=== PATIENT | male | born 1945 | race American Indian/Alaskan Native ===

== ENCOUNTER 2020-12-03 16:22 | Inpatient (IN) | payer MEDICARE ==
--- NOTE | 2020-12-03 16:52 | Emergency Department Report ---
HPI - General Time Seen by Provider: 12/03/20 16:40 - HPI HPI: This is a 75-year-old -Greenlandic male who presents to the emergency department, sent in by Dr. Enrique of [facility], for evaluation of bradycardia. The patient has a past medical history of Parkinson's disease, HIV, hypertension, hyperlipidemia, and is dealing with some urological issues. The patient previously had a suprapubic catheter placed but that was consistently getting clogged. He then had a Carr catheter placed. The patient is supposed to have surgery on December 14 to remove an obstructing stone and have a new suprapubic catheter placed. He follows with urology of [facility] in [place] and previously was seeing Dr. Saleem. The patient lives at [facility] and Dr. Vincent Ren had noticed the patient was having bradycardia. He was then sent to [facility] cardiology for evaluation of this bradycardia and he had his first appointment today. The patient presents w ith an office note showing that the patient had a heart rate of 49 and had an EKG that showed some type of AV block and that the patient will be sent to the emergency department for further evaluation. The patient is nonverbal at baseline. The patient is nonambulatory at the daughter, who is bedside, says he has multiple pressure ulcers. ED Review of Systems ROS: Stated complaint: LOW HEART RATE Other details as noted in HPI Comment: Unobtainable due to pts medical conditions Physical Exam - Physical Exam Physical Exam: GENERAL: Patient appears chronically ill and debilitated. Thin and frail appearance. HENT: Normocephalic. Atraumatic. Patient has moist mucous membranes. EYES: Extraocular motions are intact. NECK: Supple. Trachea is midline. CHEST/LUNGS: Clear to auscultation. There is no respiratory distress noted. HEART/CARDIOVASCULAR: Regular. There is no tachycardia. There is no murmur. ABDOMEN: Abdomen is soft, nontender. Patient has normal bowel sounds. SKIN: Skin is warm and dry. NEURO: The patient is awake but confused. Follows some commands. MUSCULOSKELETAL: Patient has contracted bilateral upper and lower extremities. ED Medical Decision Making - Lab Data Result diagrams: 12/03/20 16:53 12/03/20 16:53 Lab Results 12/03/20 12/03/20 12/03/20 Range/Units 16:53 16:53 16:53 WBC 6.1 (4.5-11.0) K/mm3 RBC 3.43 L (3.65-5.03) M/mm3 Hgb 11.3 L (11.8-15.2) gm/dl Hct 34.7 L (35.5-45.6) % MCV 101 H (84-94) fl MCH 33 H (28-32) pg MCHC 32 (32-34) % RDW 14.3 (13.2-15.2) % Plt Count 333 (140-440) K/mm3 Lymph % (Auto) 29.1 (13.4-35.0) % [place] % (Auto) 8.1 H (0.0-7.3) % Eos % (Auto) 3.9 (0.0-4.3) % Baso % (Auto) 0.7 (0.0-1.8) % Lymph # (Auto) 1.8 (1.2-5.4) K/mm3 [place] # (Auto) 0.5 (0.0-0.8) K/mm3 Eos # (Auto) 0.2 (0.0-0.4) K/mm3 Baso # (Auto) 0.0 (0.0-0.1) K/mm3 Seg Neutrophils % 58.2 (40.0-70.0) % Seg Neutrophils # 3.5 (1.8-7.7) K/mm3 Sodium 138 (137-145) mmol/L Potassium 3.8 (3.6-5.0) mmol/L Chloride 102.3 (98-107) mmol/L Carbon Dioxide 25 (22-30) mmol/L Anion Gap 15 mmol/L BUN 13 (9-20) mg/dL Creatinine 0.9 (0.8-1.3) mg/dL Estimated GFR > 60 ml/min BUN/Creatinine Ratio 14 % Glucose 122 H (75-100) mg/dL Calcium 8.7 (8.4-10.2) mg/dL Total Bilirubin 0.30 (0.1-1.2) mg/dL AST 15 (5-40) units/L ALT 16 (7-56) units/L Alkaline Phosphatase 65 (35-129) units/L Troponin T 0.017 (0.00-0.029) ng/mL Total Protein 6.6 (6.3-8.2) g/dL Albumin 3.2 L (3.9-5) g/dL Albumin/Globulin Ratio 0.9 % TSH 1.510 (0.270-4.200) mlU/mL - EKG Data -: EKG Interpreted by Me EKG shows normal: sinus rhythm, axis, intervals (Prolonged WV and QT intervals.), QRS complexes, ST-T waves Rate: bradycardia (45 bpm) - EKG Data When compared to previous EKG there are: previous EKG unavailable Interpretation: other (Sinus bradycardia at 45 bpm, prolonged WV and QT intervals. No ST elevation SD.) - Radiology Data Radiology results: image reviewed interpreted by me: Chest x-ray does not show any acute process. There are no pleural effusions, obvious pneumonia and there is no pneumothorax. No significant cardiomegaly. - Medical Decision Making This patient was sent in by [facility] secondary to bradycardia for which they were unable to provide a cardiac clearance for upcoming urology surgery. His EKG shows a marked first-degree heart block with a WV interval of about 300. No morphology consistent with ST elevation myocardial infarction. Chest x-ray does not show any pneumonia, pleural effusions, pneumothorax, or any other acute process. The patient's labs have been mostly unremarkable including CBC, metabolic panel and thyroid function. The patient's vital signs have been reassuring except for the bradycardia that has gone as low as 46 bpm. Patient will be admitted to the hospital for further evaluation and treatment and was accepted for admission by the hospitalist, Dr. Miller. Critical Care Time: No Critical care attestation.: If time is entered above; I have spent that time in minutes in the direct care of this critically ill patient, excluding procedure time. ED Disposition Clinical Impression: Bradycardia, Parkinson's disease, First degree atrioventricular block Disposition: OP ADMIT IP TO THIS HOSP Is pt being admited?: Yes Condition: Fair Time of Disposition: 18:12
[2020-12-03 17:16] LABS: Basophils % (Auto) 0.7 % (0.0-1.8); Eosinophils # (Auto) 0.2 K/mm3 (0.0-0.4); Eosinophils % (Auto) 3.9 % (0.0-4.3); Hematocrit 34.7 % (35.5-45.6); Hemoglobin 11.3 gm/dl (11.8-15.2); Lymphocytes # (Auto) 1.8 K/mm3 (1.2-5.4); Lymphocytes % (Auto) 29.1 % (13.4-35.0); Mean Corpuscular HGB Conc 32 % (32-34); Mean Corpuscular Volume 101 fl (84-94); Monocytes # (Auto) 0.5 K/mm3 (0.0-0.8); Monocytes % (Auto) 8.1 % (0.0-7.3); Platelet Count 333 K/mm3 (140-440); Red Blood Count 3.43 M/mm3 (3.65-5.03); Red Cell Distribution Width 14.3 % (13.2-15.2)
[2020-12-03 17:37] LABS: Alanine Aminotransferase 16 units/L (7-56); Albumin 3.2 g/dL (3.9-5); BUN/Creatinine Ratio 14; Blood Urea Nitrogen 13 mg/dL (9-20); Calcium 8.7 mg/dL (8.4-10.2); Hemolysis Index 0
--- NOTE | 2020-12-03 17:56 | XRay Report ---
XR chest 1V ap INDICATION / CLINICAL INFORMATION: bradycardia. COMPARISON: None available. FINDINGS: Patient is rotated to the right. SUPPORT DEVICES: None. HEART /PULMONARY VASCULATURE: No significant abnormality. LUNGS / PLEURA: There are low lung volumes. No significant pulmonary or pleural abnormality is identi fied. No pneumothorax. ADDITIONAL FINDINGS: None IMPRESSION: No acute chest process. Signer Name: Stewart Logan MD Signed: 12/03/2020 5:51 PM Workstation Name: [employer]
--- NOTE | 2020-12-03 23:17 | History and Physical Report ---
History of Present Illness Date of examination: 12/03/20 Date of admission: 12/03/20 18:12 Chief complaint: Seen by fur grader for bradycardia History of present illness: This is a 75-year-old -Thai male with severe parkinsonism and multiple contractures curled up in the bed who presents to the emergency department, sent in by Dr. Enrique of [facility], for evaluation of bradycardia. The patient has a past medical history of Parkinson's disease, H IV, hypertension, hyperlipidemia, and is dealing with some urological issues. The patient previously had a suprapubic catheter placed but that was consistently getting clogged. He then had a Carr catheter placed. The patient is supposed to have surgery on December 14 to remove an obstructing stone and have a new suprapubic catheter placed. He follows with urology of [facility] in [place] and previously was seeing Dr. Saleem. The patient lives at [facility] and Dr. Vincent Ren had noticed the patient was having bradycardia. He was then sent to [facility] cardiology for evaluation of this bradycardia and he had his first appointment today. The patient presents with an office note showing that the patient had a heart rate of 49 and had an EKG that showed AV block and that the patient will be sent to the emergency department for further evaluation. The patient is nonverbal at baseline. The patient is nonambulatory at the daughter, who is bedside, says he has multiple pressure ulcers. Patient can be fed and has no PEG tube Past History Past Medical History: HIV/AIDS, hypertension, hyperlipidemia, other (Parkinsonism) Past Surgical History: No surgical history Social history: full code, other (Lives in a residential) Family history: hypertension Medications and Allergies Allergies Allergy/AdvReac Type Severity Reaction Status Date / Time Sulfa (Sulfonamide Allergy Unknown Verified 12/03/20 17:02 Antibiotics) Home Medications Medication Instructions Recorded Confirmed Last Taken Type Acetaminophen [Acetaminophen ER] 650 mg PO Q6H PRN 12/03/20 12/04/20 Unknown History Alendronate Sodium 70 mg PO QWEEK 12/03/20 12/04/20 Unknown History Baclofen [Lioresal] 10 mg PO BID 12/03/20 12/04/20 Unknown History Bictegrav/Emtricit/Tenofov Ala 1 tab PO DAILY 12/03/20 12/04/20 Unknown History [Biktarvy 50-200-25 mg (Nf)] Hyoscyamine Subl [Levsin Sl] 0.125 mg SL Q4H PRN 12/03/20 12/04/20 Unknown History Melatonin [Melatonin 5MG CAP] 5 mg PO QHS 12/03/20 12/04/20 Unknown History Rosuvastatin Calcium 10 mg PO QHS 12/03/20 12/04/20 Unknown History bisacodyL [Dulcolax suppos] 10 mg VA DAILY PRN 12/03/20 12/04/20 Unknown History haloperidoL [Haldol] 1 mg PO Q4H PRN 12/03/20 12/04/20 Unknown History Review of Systems All systems: negative Constitutional: no weight loss, no weight gain, no fever, no chills, no sweats, no night sweats Ears, nose, mouth and throat: no ear pain, no ear discharge, no tinnitis, no decreased hearing Cardiovascular: no chest pain, no orthopnea, no palpitations, no rapid/irregular heart beat, no edema, no syncope, no lightheadedness, no shortness of breath Respiratory: no cough, no cough with sputum, no excessive sputum, no hemoptysis, no shortness of breath, no dyspnea on exertion Gastrointestinal: no abdominal pain, no nausea, no vomiting, no diarrhea Genitourinary Male: no urinary frequency, no urinary hesitancy Musculoskeletal: muscle weakness, limitation of motion, gait dysfunction, other (Contractures in all four extremities), no neck stiffness, no neck pain Exam - Constitutional Vitals: Temp Pulse Resp BP Pulse Ox 98.8 F 48 L 17 136/52 97 12/03/20 21:27 12/03/20 21:41 12/03/20 21:27 12/03/20 21:27 12/03/20 21:27 General appearance: Present: no acute distress, well-nourished - EENT Eyes: Present: PERRL ENT: hearing intact, clear oral mucosa - Neck Neck: Present: supple, normal ROM - Respiratory Respiratory effort: normal Respiratory: bilateral: CTA - Cardiovascular Heart rate: 48 Rhythm: regular Heart Sounds: Present: S1 & S2. Absent: rub, click - Extremities Extremities: no ischemia, pulses intact, pulses symmetrical, No edema Peripheral Pulses: within normal limits - Abdominal General gastrointestinal: Present: soft, non-tender, non-distended, normal bowel sounds Male genitourinary: Present: normal - Rectal Rectal Exam: deferred - Integumentary Integumentary: Present: clear, warm, dry - Musculoskeletal Musculoskeletal: generalized weakness, other (Multiple contractures) - Psychiatric Psychiatric: intact judgment & insight, cooperative, other (Severe rigidity on all four extremities secondary to parkinsonism) - Neurologic Neurologic: CNII-XII intact, moves all extremities - Allied Health Allied health notes reviewed: nursing, case management HEART Score - HEART Score History: Slightly suspicious Age: > 65 Risk factors: > 3 risk factors or hx of atherosclerotic disease Troponin: Troponin T 0.017 ng/mL (0.00-0.029) 12/03/20 16:53 Troponin: < normal limit - Critical Actions Critical Actions: 0-3 pts:0.9-1.7%risk of adverse cardiac event.Candidate for discharge Results - Labs CBC & Chem 7: 12/04/20 05:14 12/04/20 05:14 Labs: Laboratory Last Values WBC 6.1 K/mm3 (4.5-11.0) 12/03/20 16:53 RBC 3.43 M/mm3 (3.65-5.03) L 12/03/20 16:53 Hgb 11.3 gm/dl (11.8-15.2) L 12/03/20 16:53 Hct 34.7 % (35.5-45.6) L 12/03/20 16:53 MCV 101 fl (84-94) H 12/03/20 16:53 MCH 33 pg (28-32) H 12/03/20 16:53 MCHC 32 % (32-34) 12/03/20 16:53 RDW 14.3 % (13.2-15.2) 12/03/20 16:53 Plt Count 333 K/mm3 (140-440) 12/03/20 16:53 Lymph % (Auto) 29.1 % (13.4-35.0) 12/03/20 16:53 [place] % (Auto) 8.1 % (0.0-7.3) H 12/03/20 16:53 Eos % (Auto) 3.9 % (0.0-4.3) 12/03/20 16:53 Baso % (Auto) 0.7 % (0.0-1.8) 12/03/20 16:53 Lymph # (Auto) 1.8 K/mm3 (1.2-5.4) 12/03/20 16:53 [place] # (Auto) 0.5 K/mm3 (0.0-0.8) 12/03/20 16:53 Eos # (Auto) 0.2 K/mm3 (0.0-0.4) 12/03/20 16:53 Baso # (Auto) 0.0 K/mm3 (0.0-0.1) 12/03/20 16:53 Seg Neutrophils % 58.2 % (40.0-70.0) 12/03/20 16:53 Seg Neutrophils # 3.5 K/mm3 (1.8-7.7) 12/03/20 16:53 Sodium 138 mmol/L (137-145) 12/03/20 16:53 Potassium 3.8 mmol/L (3.6-5.0) 12/03/20 16:53 Chloride 102.3 mmol/L (98-107) 12/03/20 16:53 Carbon Dioxide 25 mmol/L (22-30) 12/03/20 16:53 Anion Gap 15 mmol/L 12/03/20 16:53 BUN 13 mg/dL (9-20) 12/03/20 16:53 Creatinine 0.9 mg/dL (0.8-1.3) 12/03/20 16:53 Estimated GFR > 60 ml/min 12/03/20 16:53 BUN/Creatinine Ratio 14 % 12/03/20 16:53 Glucose 122 mg/dL (75-100) H 12/03/20 16:53 Calcium 8.7 mg/dL (8.4-10.2) 12/03/20 16:53 Total Bilirubin 0.30 mg/dL (0.1-1.2) 12/03/20 16:53 AST 15 units/L (5-40) 12/03/20 16:53 ALT 16 units/L (7-56) 12/03/20 16:53 Alkaline Phosphatase 65 units/L (35-129) 12/03/20 16:53 Troponin T 0.017 ng/mL (0.00-0.029) 12/03/20 16:53 Total Protein 6.6 g/dL (6.3-8.2) 12/03/20 16:53 Albumin 3.2 g/dL (3.9-5) L 12/03/20 16:53 Albumin/Globulin Ratio 0.9 % 12/03/20 16:53 TSH 1.510 mlU/mL (0.270-4.200) 12/03/20 16:53 Short CBC 12/03/20 12/04/20 Range/Units 16:53 05:14 WBC 6.1 12.8 H (4.5-11.0) K/mm3 Hgb 11.3 L 10.9 L (11.8-15.2) gm/dl Hct 34.7 L 33.6 L (35.5-45.6) % Plt Count 333 295 (140-440) K/mm3 BMP 12/03/20 12/04/20 16:53 05:14 Sodium 138 139 Potassium 3.8 3.5 L Chloride 102.3 107.0 Carbon Dioxide 25 23 BUN 13 12 Creatinine 0.9 0.9 Glucose 122 H 109 H Calcium 8.7 8.7 Cardiac Enzymes 12/03/20 12/04/20 12/04/20 Range/Units 16:53 00:36 05:14 Troponin T 0.017 < 0.010 0.017 (0.00-0.029) ng/mL Liver Function 12/03/20 12/04/20 Range/Units 16:53 05:14 Total Bilirubin 0.30 0.40 (0.1-1.2) mg/dL AST 15 16 (5-40) units/L ALT 16 16 (7-56) units/L Alkaline Phosphatase 65 65 (35-129) units/L Albumin 3.2 L 3.0 L (3.9-5) g/dL - Imaging and Cardiology EKG: report reviewed (Sinus bradycardia first-degree AV block heart rate of 48/min) Chest x-ray: report reviewed Imaging and Cardiology: No acute findings Carr/IV: Voiding Method Indwelling Catheter Assessment and Plan Advance Directives: Yes (Full code) VTE prophylaxis?: Chemical Plan of care discussed with patient/family: Yes - Patient Problems (1) Bradycardia Current Visit: Yes Status: Acute Plan to address problem: Stable Cardiology Dr. Enrique consulted (2) First degree atrioventricular block Current Visit: Yes Status: Chronic Plan to address problem: Will defer to cardiology (3) Parkinson's disease Current Visit: Yes Status: Chronic Plan to address problem: Continue antiparkinsonian drugs (4) Anemia Current Visit: Yes Status: Chronic Qualifiers: Anemia type: unspecified type Qualified Code(s): D64.9 - Anemia, unspecified Plan to address problem: Check iron levels, probably nutritional (5) Hypokalemia Current Visit: Yes Status: Acute Plan to address problem: Supplemented (6) HIV (human immunodeficiency virus infection) Current Visit: Yes Status: Chronic Qualifiers: HIV symptom status: unspecified Qualified Code(s): B20 - Human immunodeficiency virus [HIV] disease Plan to address problem: Continue antiretrovirals (7) Decubitus ulcers Current Visit: Yes Status: Chronic Qualifiers: Pressure injury stage: stage 2 Plan to address problem: Wound care nurse consult (8) Malnutrition Current Visit: Yes Status: Chronic Qualifiers: Protein-calorie malnutrition severity: moderate Plan to address problem: Dietary supplements initiated (9) DVT prophylaxis Current Visit: Yes Status: Acute Plan to address problem: On heparin and GI prophylaxis
[2020-12-03] MEDS ORDERED: ONDANSETRON 4 MG/2 ML INJ IV PRN (23:23)
[2020-12-03] MEDS ORDERED: ACETAMINOPHEN 325 MG TAB PO PRN (23:23)
[2020-12-03] MEDS ORDERED: METOCLOPRAMIDE 10 MG/2 ML INJ IV PRN (23:23)
[2020-12-03] MEDS ORDERED: MORPHINE 2 MG/1 ML INJ IV PRN (23:23)
[2020-12-04] MEDS: D5W/0.9% NACL 1,000 ML IV SCH (00:59)
[2020-12-04 06:04] LABS: Basophils % (Auto) 0.3 % (0.0-1.8); Eosinophils # (Auto) 0.1 K/mm3 (0.0-0.4); Eosinophils % (Auto) 0.8 % (0.0-4.3); Hematocrit 33.6 % (35.5-45.6); Hemoglobin 10.9 gm/dl (11.8-15.2); Lymphocytes # (Auto) 1.6 K/mm3 (1.2-5.4); Lymphocytes % (Auto) 12.8 % (13.4-35.0); Mean Corpuscular HGB Conc 33 % (32-34); Mean Corpuscular Volume 101 fl (84-94); Monocytes # (Auto) 0.7 K/mm3 (0.0-0.8); Monocytes % (Auto) 5.2 % (0.0-7.3); Platelet Count 295 K/mm3 (140-440); Red Blood Count 3.32 M/mm3 (3.65-5.03); Red Cell Distribution Width 14.1 % (13.2-15.2)
[2020-12-04 06:49] LABS: Alanine Aminotransferase 16 units/L (7-56); BUN/Creatinine Ratio 13; Blood Urea Nitrogen 12 mg/dL (9-20); Calcium 8.7 mg/dL (8.4-10.2); Hemolysis Index 2
[2020-12-04] MEDS ORDERED: NON-FORMULARY EACH (Acetaminophen [Acetaminophen Er] 650 MG Tablet.Er) PO PRN (07:20)
[2020-12-04] MEDS ORDERED: HYOSCYAMINE SUBL 0.125 MG TAB SL PRN (07:20)
[2020-12-04] MEDS ORDERED: HALOPERIDOL 1 MG TAB PO PRN (07:20)
[2020-12-04] MEDS ORDERED: NON-FORMULARY EACH (Bictegrav/Emtricit/Tenofov Ala 1 EACH Tablet) PO SCH (10:00)
--- NOTE | 2020-12-04 10:36 | Progress Note ---
Assessment and Plan Assessment and plan: First-degree AV block/bradycardia Parkinson's disease Anemia Hypokalemia HIV Decubitus ulcers Protein calorie malnutrition 12/04/2020. Await cardiology consultation. Continue telemetry monitoring. History Interval history: No new issues overnight. Hospitalist Physical - Constitutional Vitals: Temp Pulse Resp BP Pulse Ox 98.4 F 48 L 16 128/50 68 L 12/04/20 07:20 12/04/20 07:20 12/04/20 07:20 12/04/20 07:20 12/04/20 07:20 General appearance: Present: no acute distress, well-nourished - EENT Eyes: Present: PERRL, EOM intact ENT: hearing intact, clear oral mucosa, dentition normal - Neck Neck: Present: supple, normal ROM - Respiratory Respiratory effort: normal Respiratory: bilateral: CTA - Cardiovascular Rhythm: regular Heart Sounds: Present: S1 & S2. Absent: gallop, rub - Extremities Extremities: no ischemia, No edema, Full ROM - Abdominal General gastrointestinal: soft, non-tender, non-distended, normal bowel sounds - Integumentary Integumentary: Present: clear, warm, dry - Neurologic Neurologic: CNII-XII intact, moves all extremities HEART Score - HEART Score Age: > 65 Risk factors: > 3 risk factors or hx of atherosclerotic disease Troponin: Troponin T 0.017 ng/mL (0.00-0.029) 12/04/20 05:14 Troponin: < normal limit - Critical Actions Critical Actions: 0-3 pts:0.9-1.7%risk of adverse cardiac event.Candidate for discharge Results - Labs CBC & Chem 7: 12/04/20 05:14 12/04/20 05:14 Labs: Laboratory Last Values WBC 12.8 K/mm3 (4.5-11.0) H 12/04/20 05:14 RBC 3.32 M/mm3 (3.65-5.03) L 12/04/20 05:14 Hgb 10.9 gm/dl (11.8-15.2) L 12/04/20 05:14 Hct 33.6 % (35.5-45.6) L 12/04/20 05:14 MCV 101 fl (84-94) H 12/04/20 05:14 MCH 33 pg (28-32) H 12/04/20 05:14 MCHC 33 % (32-34) 12/04/20 05:14 RDW 14.1 % (13.2-15.2) 12/04/20 05:14 Plt Count 295 K/mm3 (140-440) 12/04/20 05:14 Lymph % (Auto) 12.8 % (13.4-35.0) L 12/04/20 05:14 [place] % (Auto) 5.2 % (0.0-7.3) 12/04/20 05:14 Eos % (Auto) 0.8 % (0.0-4.3) 12/04/20 05:14 Baso % (Auto) 0.3 % (0.0-1.8) 12/04/20 05:14 Lymph # (Auto) 1.6 K/mm3 (1.2-5.4) 12/04/20 05:14 [place] # (Auto) 0.7 K/mm3 (0.0-0.8) 12/04/20 05:14 Eos # (Auto) 0.1 K/mm3 (0.0-0.4) 12/04/20 05:14 Baso # (Auto) 0.0 K/mm3 (0.0-0.1) 12/04/20 05:14 Seg Neutrophils % 80.9 % (40.0-70.0) H 12/04/20 05:14 Seg Neutrophils # 10.3 K/mm3 (1.8-7.7) H 12/04/20 05:14 Sodium 139 mmol/L (137-145) 12/04/20 05:14 Potassium 3.5 mmol/L (3.6-5.0) L 12/04/20 05:14 Chloride 107.0 mmol/L (98-107) 12/04/20 05:14 Carbon Dioxide 23 mmol/L (22-30) 12/04/20 05:14 Anion Gap 13 mmol/L 12/04/20 05:14 BUN 12 mg/dL (9-20) 12/04/20 05:14 Creatinine 0.9 mg/dL (0.8-1.3) 12/04/20 05:14 Estimated GFR > 60 ml/min 12/04/20 05:14 BUN/Creatinine Ratio 13 % 12/04/20 05:14 Glucose 109 mg/dL (75-100) H 12/04/20 05:14 Hemoglobin A1c 5.1 % (4-6) 12/04/20 05:14 Calcium 8.7 mg/dL (8.4-10.2) 12/04/20 05:14 Total Bilirubin 0.40 mg/dL (0.1-1.2) 12/04/20 05:14 AST 16 units/L (5-40) 12/04/20 05:14 ALT 16 units/L (7-56) 12/04/20 05:14 Alkaline Phosphatase 65 units/L (35-129) 12/04/20 05:14 Troponin T 0.017 ng/mL (0.00-0.029) 12/04/20 05:14 Total Protein 7.0 g/dL (6.3-8.2) 12/04/20 05:14 Albumin 3.0 g/dL (3.9-5) L 12/04/20 05:14 Albumin/Globulin Ratio 0.8 % 12/04/20 05:14 TSH 1.510 mlU/mL (0.270-4.200) 12/03/20 16:53 Carr/IV: Voiding Method Indwelling Catheter Active Medications - Current Medications Current Medications: Generic Name Dose Route Start Last Admin Trade Name Freq PRN Reason Stop Dose Admin Acetaminophen 650 mg 12/03/20 23:23 Acetaminophen 325 Mg Tab PO Q4H PRN Pain MILD(1-3)/Fever >100.5/BAILEY Baclofen 10 mg 12/04/20 10:00 Baclofen 10 Mg Tab PO BID SAFIA Bisacodyl 10 mg 12/04/20 10:00 Bisacodyl 10 Mg Rect Supp MD DAILY PRN Constipation Famotidine 20 mg 12/04/20 10:00 Famotidine 20 Mg/2 Ml Inj IV BID SAFIA Haloperidol 1 mg 12/04/20 07:20 Haloperidol 1 Mg Tab PO Q4H PRN Anxiety Heparin Sodium (Porcine) 5,000 unit 12/04/20 10:00 Heparin 5,000 Unit/1 Ml Vial SUB-Q Q12HR SAFIA Hyoscyamine 0.125 mg 12/04/20 07:20 Hyoscyamine Subl 0.125 Mg Tab SL Q4H PRN excessive secretions Dextrose/Sodium Chloride 1,000 mls @ 100 mls/hr 12/03/20 23:45 12/04/20 00:59 D5ns IV 100 mls/hr DIRECT SAFIA Administration Metoclopramide HCl 10 mg 12/03/20 23:23 Metoclopramide 10 Mg/2 Ml Inj IV Q6H PRN Nausea And Vomiting Miscellaneous Medication 1 tab 12/04/20 10:00 Bictegrav/Emtricit/Tenofov Ala PO DAILY SAFIA Morphine Sulfate 2 mg 12/03/20 23:23 Morphine 2 Mg/1 Ml Inj IV Q4H PRN Pain, Moderate (4-6) Ondansetron HCl 4 mg 12/03/20 23:23 Ondansetron 4 Mg/2 Ml Inj IV Q3H PRN Nausea And Vomiting Sodium Chloride 10 ml 12/03/20 23:45 12/04/20 00:59 Sodium Chloride 0.9% 10 Ml Flush Syringe IV 10 ml BID SAFIA Administration Sodium Chloride 10 ml 12/03/20 23:23 Sodium Chloride 0.9% 10 Ml Flush Syringe IV PRN PRN LINE FLUSH Nutrition/Malnutrition Assess - Dietary Evaluation Nutrition/Malnutrition Findings: Nutrition Notes Start: 12/04/20 09:32 Freq: Status: Active Protocol: Document 12/04/20 09:32 CW (Rec: 12/04/20 09:44 CW [id number]) Nutrition Notes Need for Assessment generated from: educational aide,MST Initial or Follow up Assessment Current Diagnosis Decubitus(Pressure Ulcer), Hypertension,Hyperlipidemia Other Pertinent Diagnosis Parkinson's,anemia, HIV, Malnutrition, contractures Current Diet Cardiac Labs/Tests K 3.5 Pertinent Medications D5NS at 100 ml/hr Height 5 ft 7 in Weight 55.6 kg Sims Body Weight (kg) 67.27 BMI 19.2 Weight Status Underweight Subjective/Other Information RN screen for MST for unsure of weight loss and skin risk. Roque score of 12. Pt recieves [id number] assistance d /t contractures. Burn Absent Trauma Absent GI Symptoms None Skin Integrity/Comment Pressure ulcers Minimum of two criteria No Reduced Reproduction Production Manager Strength Measurably Reduced (severe) #1 Nutrition Diagnosis Increased nutrient needs ( specify in comment below) Comments: protein Etiology wound healing As Evidenced by Signs and Symptoms multiple pressure ulcers present Is patient on ventilator? No Is Patient Ambulatory and/or Out of Bed No REE-([facility]-confined to bed) 1506.084 Kcal/Kg value to use for calculation 33 Approximate Energy Requirements Using 1835 kcal/Kg Calculation Used for Recommendations Kcal/kg Additional Notes protein needs:70-83 g (1.25 - 1.5 g/kgBW) fluid needs: 1 ml/kcal Nutrition Intervention Change Diet Order: Continue Cardiac Diet Add Supplement/Snack (indicate name/kcal Ensure Enlive BID /protein ) Provides kCal: 700 Provides Protein (gm) 40 Goal #1 Meet at [facility] 80% of EER via PO Goal #2 Wound healing Anticipated Discharge Needs: Cardiac diet with ONS BID Follow-Up By: 12/06/20 Additional Comments F/U for intakes and ONS tolerance
[2020-12-04] MEDS: BACLOFEN 10 MG TAB PO SCH ×2 (11:25→21:43)
[2020-12-04] MEDS: HEPARIN 5,000 UNIT/1 ML VIAL SUB-Q SCH ×2 (11:26→21:43)
--- NOTE | 2020-12-04 11:51 | Progress Note ---
Assessment and Plan - Patient Problems (1) Bradycardia Current Visit: Yes Status: Acute Plan to address problem: Third-degree AV block TSH is normal at 1.5 Avoid AV jonny blocking agents. (2) HIV (human immunodeficiency virus infection) Current Visit: Yes Status: Chronic Qualifiers: Qualified Code(s): B20 - Human immunodeficiency virus [HIV] disease (3) Decubitus ulcers Current Visit: Yes Status: Chronic Subjective Date of service: 12/04/20 Interval history: Yesterday, patient was brought to our on for per-operative cardiac assessment for supra pubic cath placement. An ECG done was abnormal, marked bradycardia with ventricular rate of 49. Patient remained asymptomatic. He had no chest pain, shortness of breath, or dizziness. Patient was referred to the ED for further evaluation. An ECG on presentation shows third-degree atrioventricular block, ventricular rate of 48. He is not on any AV jonny blocking agents. TSH is normal at 1.5. Patient remains asymptomatic. Denies dizziness, unusual shortness of breath, and chest pain. Objective Vital Signs Temp Pulse Resp BP BP Pulse Ox 12/04/20 07:20 98.4 F 48 L 16 128/50 68 L 12/04/20 03:52 98.4 F 49 L 16 111/47 99 12/03/20 23:22 98.8 F 49 L 16 140/63 96 12/03/20 21:41 48 L 12/03/20 21:27 98.8 F 48 L 17 136/52 97 12/03/20 20:39 99.3 F 48 L 22 132/72 98 12/03/20 18:28 100 12/03/20 17:02 98 F 46 L 16 107/34 100 - Physical Examination General: No Apparent Distress HEENT: Positive: PERRL Neck: Positive: trachea midline Cardiac: Positive: Bradycardia Lungs: Positive: Decreased Breath Sounds Skin: Positive: Other (hip ulcer) - Labs and Meds Cardiac Enzymes 12/03/20 12/04/20 Range/Units 16:53 05:14 AST 15 16 (5-40) units/L CBC 12/03/20 12/04/20 Range/Units 16:53 05:14 WBC 6.1 12.8 H (4.5-11.0) K/mm3 RBC 3.43 L 3.32 L (3.65-5.03) M/mm3 Hgb 11.3 L 10.9 L (11.8-15.2) gm/dl Hct 34.7 L 33.6 L (35.5-45.6) % Plt Count 333 295 (140-440) K/mm3 Lymph # (Auto) 1.8 1.6 (1.2-5.4) K/mm3 [place] # (Auto) 0.5 0.7 (0.0-0.8) K/mm3 Eos # (Auto) 0.2 0.1 (0.0-0.4) K/mm3 Baso # (Auto) 0.0 0.0 (0.0-0.1) K/mm3 Comprehensive Metabolic Panel 12/03/20 12/04/20 Range/Units 16:53 05:14 Sodium 138 139 (137-145) mmol/L Potassium 3.8 3.5 L (3.6-5.0) mmol/L Chloride 102.3 107.0 (98-107) mmol/L Carbon Dioxide 25 23 (22-30) mmol/L BUN 13 12 (9-20) mg/dL Creatinine 0.9 0.9 (0.8-1.3) mg/dL Glucose 122 H 109 H (75-100) mg/dL Calcium 8.7 8.7 (8.4-10.2) mg/dL AST 15 16 (5-40) units/L ALT 16 16 (7-56) units/L Alkaline Phosphatase 65 65 (35-129) units/L Total Protein 6.6 7.0 (6.3-8.2) g/dL Albumin 3.2 L 3.0 L (3.9-5) g/dL
[2020-12-04] MEDS: FAMOTIDINE 20 MG/2 ML INJ IV SCH ×2 (13:20→21:43)
--- NOTE | 2020-12-04 16:21 | Consultation ---
History of Present Illness Consult date: 12/04/20 Consult reason: bradycardia History of present illness: Electrophysiology Consult 75-year-old -Belarusian male with h/o parikinson's disease, multiple contractures, HIV, hypertension, hyperlipidemia, multiple decubitus ulcers, and urinary retention. He was evaluated by Dr. Enrique in office yesterday for pre- operative evaluation prior to having urology surgery. He was noted to have significant bradycardia and sent to ED. ECG in hospital is consistent with SR,complete heart block with narrow complex junctional escape rhythm in the high 40s. His BP has been stable. Jefry is not able to provide meaningful history but he has not had any syncope, pre-syncope, dizzyness or unusual chest pain according to his daughter. His BP has been stable during hospitalization. His daughter reports he has been under hospice care. Past History Past Medical History: HIV/AIDS, hypertension, hyperlipidemia, other (Parkinsonism) Past Surgical History: No surgical history Social history: other (Lives in a care home) Family history: hypertension Medications and Allergies Allergies Allergy/AdvReac Type Severity Reaction Status Date / Time Sulfa (Sulfonamide Allergy Unknown Verified 12/03/20 17:02 Antibiotics) Home Medications Medication Instructions Recorded Confirmed Last Taken Type Acetaminophen [Acetaminophen ER] 650 mg PO Q6H PRN 12/03/20 12/04/20 Unknown History Alendronate Sodium 70 mg PO QWEEK 12/03/20 12/04/20 Unknown History Baclofen [Lioresal] 10 mg PO BID 12/03/20 12/04/20 Unknown History Bictegrav/Emtricit/Tenofov Ala 1 tab PO DAILY 12/03/20 12/04/20 Unknown History [Biktarvy 50-200-25 mg (Nf)] Hyoscyamine Subl [Levsin Sl] 0.125 mg SL Q4H PRN 12/03/20 12/04/20 Unknown History Melatonin [Melatonin 5MG CAP] 5 mg PO QHS 12/03/20 12/04/20 Unknown History Rosuvastatin Calcium 10 mg PO QHS 12/03/20 12/04/20 Unknown History bisacodyL [Dulcolax suppos] 10 mg [place] DAILY PRN 12/03/20 12/04/20 Unknown History haloperidoL [Haldol] 1 mg PO Q4H PRN 12/03/20 12/04/20 Unknown History Active Meds: Active Medications Acetaminophen (Acetaminophen 325 Mg Tab) 650 mg PO Q4H PRN PRN Reason: Pain MILD(1-3)/Fever >100.5/BAILEY Baclofen (Baclofen 10 Mg Tab) 10 mg PO BID [facility] Last Admin: 12/04/20 11:25 Dose: 10 mg Documented by: Bisacodyl (Bisacodyl 10 Mg Rect Supp) 10 mg NV DAILY PRN PRN Reason: Constipation Famotidine (Famotidine 20 Mg/2 Ml Inj) 20 mg IV BID [facility] Last Admin: 12/04/20 13:20 Dose: 20 mg Documented by: Haloperidol (Haloperidol 1 Mg Tab) 1 mg PO Q4H PRN PRN Reason: Anxiety Heparin Sodium (Porcine) (Heparin 5,000 Unit/1 Ml Vial) 5,000 unit SUB-Q Q12HR [facility] Last Admin: 12/04/20 11:26 Dose: 5,000 unit Documented by: Hyoscyamine (Hyoscyamine Subl 0.125 Mg Tab) 0.125 mg SL Q4H PRN PRN Reason: excessive secretions Dextrose/Sodium Chloride (D5ns) 1,000 mls @ 100 mls/hr IV DIRECT [facility] Last Admin: 12/04/20 00:59 Dose: 100 mls/hr Documented by: Metoclopramide HCl (Metoclopramide 10 Mg/2 Ml Inj) 10 mg IV Q6H PRN PRN Reason: Nausea And Vomiting Miscellaneous Medication (Bictegrav/Emtricit/Tenofov Ala) 1 tab PO DAILY [facility] Morphine Sulfate (Morphine 2 Mg/1 Ml Inj) 2 mg IV Q4H PRN PRN Reason: Pain, Moderate (4-6) Ondansetron HCl (Ondansetron 4 Mg/2 Ml Inj) 4 mg IV Q3H PRN PRN Reason: Nausea And Vomiting Sodium Chloride (Sodium Chloride 0.9% 10 Ml Flush Syringe) 10 ml IV BID [facility] Last Admin: 12/04/20 13:20 Dose: 10 ml Documented by: Sodium Chloride (Sodium Chloride 0.9% 10 Ml Flush Syringe) 10 ml IV PRN PRN PRN Reason: LINE FLUSH Review of Systems ROS unobtainable: due to mental status Physical Examination Vital Signs Temp Pulse Resp BP Pulse Ox 98 F 46 L 16 107/34 100 12/03/20 17:02 12/03/20 17:02 12/03/20 17:02 12/03/20 17:02 12/03/20 17:02 General appearance: other (contracted) Neck: Positive: neck supple Cardiac: Positive: Bradycardia. Negative: Audible Murmur Lungs: Positive: Decreased Breath Sounds Abdomen: Positive: Soft, Active Bowel Sounds Extremities: Absent: edema Results 12/04/20 05:14 12/04/20 05:14 Cardiac Enzymes 12/03/20 12/04/20 Range/Units 16:53 05:14 AST 15 16 (5-40) units/L CBC 12/03/20 12/04/20 Range/Units 16:53 05:14 WBC 6.1 12.8 H (4.5-11.0) K/mm3 RBC 3.43 L 3.32 L (3.65-5.03) M/mm3 Hgb 11.3 L 10.9 L (11.8-15.2) gm/dl Hct 34.7 L 33.6 L (35.5-45.6) % Plt Count 333 295 (140-440) K/mm3 Lymph # (Auto) 1.8 1.6 (1.2-5.4) K/mm3 [place] # (Auto) 0.5 0.7 (0.0-0.8) K/mm3 Eos # (Auto) 0.2 0.1 (0.0-0.4) K/mm3 Baso # (Auto) 0.0 0.0 (0.0-0.1) K/mm3 Comprehensive Metabolic Panel 12/03/20 12/04/20 Range/Units 16:53 05:14 Sodium 138 139 (137-145) mmol/L Potassium 3.8 3.5 L (3.6-5.0) mmol/L Chloride 102.3 107.0 (98-107) mmol/L Carbon Dioxide 25 23 (22-30) mmol/L BUN 13 12 (9-20) mg/dL Creatinine 0.9 0.9 (0.8-1.3) mg/dL Glucose 122 H 109 H (75-100) mg/dL Calcium 8.7 8.7 (8.4-10.2) mg/dL AST 15 16 (5-40) units/L ALT 16 16 (7-56) units/L Alkaline Phosphatase 65 65 (35-129) units/L Total Protein 6.6 7.0 (6.3-8.2) g/dL Albumin 3.2 L 3.0 L (3.9-5) g/dL Assessment and Plan 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 I extensively discussed prognosis and management of complete heart block with patient and his daughter (Ms. Cameron, phone [phone]). 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 We extensively discussed risks and benefits of pacemakers. After extensive discussion, patient and his daughter do not want to proceed with PPM.
[2020-12-04] MEDS ORDERED: SODIUM CHLORIDE 1 GM TAB PO SCH (22:00)
[2020-12-05] MEDS: D5W/0.9% NACL 1,000 ML IV SCH (04:38)
[2020-12-05 07:58] LABS: Basophils % (Auto) 0.5 % (0.0-1.8); Eosinophils # (Auto) 0.3 K/mm3 (0.0-0.4); Eosinophils % (Auto) 3.5 % (0.0-4.3); Hematocrit 34.1 % (35.5-45.6); Hemoglobin 11.4 gm/dl (11.8-15.2); Lymphocytes # (Auto) 1.7 K/mm3 (1.2-5.4); Lymphocytes % (Auto) 23.6 % (13.4-35.0); Mean Corpuscular HGB Conc 33 % (32-34); Mean Corpuscular Volume 101 fl (84-94); Monocytes # (Auto) 0.6 K/mm3 (0.0-0.8); Monocytes % (Auto) 7.8 % (0.0-7.3); Platelet Count 276 K/mm3 (140-440); Red Blood Count 3.38 M/mm3 (3.65-5.03)
[2020-12-05 08:18] LABS: BUN/Creatinine Ratio 9; Blood Urea Nitrogen 7 mg/dL (9-20); Calcium 8.6 mg/dL (8.4-10.2); Hemolysis Index 6
[2020-12-05] MEDS: FAMOTIDINE 20 MG/2 ML INJ IV SCH (10:05)
[2020-12-05] MEDS: HEPARIN 5,000 UNIT/1 ML VIAL SUB-Q SCH (10:05)
[2020-12-05] MEDS: BACLOFEN 10 MG TAB PO SCH (10:13)
--- NOTE | 2020-12-05 10:13 | Consultation ---
History of Present Illness - Reason for Consult Consult date: 12/05/20 - History of Present Illness NEW TO OUR SERVICE REVIEWED CHART NOTES This is a 75-year-old -[place] male with severe parkinsonism and multiple contractures curled up in the bed who presents to the emergency departm ent, sent in by Dr. Enrique of [facility], for evaluation of bradycardia. The patient has a past medical history of Parkinson's disease, HIV, hypertension, hyperlipidemia, and is dealing with some urological issues. The patient previously had a suprapubic catheter placed but that was consistently getting clogged. He then had a Sullivan catheter placed. The patient is supposed to have surgery on December 14 to remove an obstructing stone and have a new suprapubic catheter placed. He follows with urology of [facility] in [place] and previously was seeing Dr. Saleem. The patient lives at [facility] and Dr. Vincent Ren had noticed the patient was having bradycardia. He was then sent to [facility] cardiology for evaluation of this bradycardia and he had his first appointment today. The patient presents with an office note showing that the patient had a heart rate of 49 and had an EKG that showed AV block and that the patient will be sent to the emergency department for further evaluation. The patient is nonverbal at baseline. The patient is nonambulatory at the daughter, who is bedside, says he has multiple pressure ulcers. NURSE AT BEDSIDE ABD SOFT - 10F SPT PLUGGED NORMAL PHALLUS AT BEDSIDE UNDER STERILE CONDITIONS & LIDOCAINE GEL: WIRE ALONG SIDE SPT--- CUT OLD SPT & SUTURE TO REMOVE ---DILATED TO 20F--- 16F [place] [employer] TIP SULLIVAN PLACED A/P RETENTION OK TO REMOVE SULLIVAN HOME WITH SPT (16F) CAN CHANGE SPT Q 4-6 WEEKS F/U PRIMARY Past History Past Medical History: HIV/AIDS, hypertension, hyperlipidemia, other (Parkinsonism) Past Surgical History: No surgical history Social history: other (Lives in a [facility]) Family history: hypertension Medications and Allergies Allergies Allergy/AdvReac Type Severity Reaction Status Date / Time Sulfa (Sulfonamide Allergy Unknown Verified 12/03/20 17:02 Antibiotics) Home Medications Medication Instructions Recorded Confirmed Last Taken Type Acetaminophen [Acetaminophen ER] 650 mg PO Q6H PRN 12/03/20 12/04/20 Unknown History Alendronate Sodium 70 mg PO QWEEK 12/03/20 12/04/20 Unknown History Baclofen [Lioresal] 10 mg PO BID 12/03/20 12/04/20 Unknown History Bictegrav/Emtricit/Tenofov Ala 1 tab PO DAILY 12/03/20 12/04/20 Unknown History [Biktarvy 50-200-25 mg (Nf)] Hyoscyamine Subl [Levsin Sl] 0.125 mg SL Q4H PRN 12/03/20 12/04/20 Unknown History Melatonin [Melatonin 5MG CAP] 5 mg PO QHS 12/03/20 12/04/20 Unknown History Rosuvastatin Calcium 10 mg PO QHS 12/03/20 12/04/20 Unknown History bisacodyL [Dulcolax suppos] 10 mg [place] DAILY PRN 12/03/20 12/04/20 Unknown History haloperidoL [Haldol] 1 mg PO Q4H PRN 12/03/20 12/04/20 Unknown History Active Meds: Active Medications Acetaminophen (Acetaminophen 325 Mg Tab) 650 mg PO Q4H PRN PRN Reason: Pain MILD(1-3)/Fever >100.5/BAILEY Baclofen (Baclofen 10 Mg Tab) 10 mg PO BID [facility] Last Admin: 12/04/20 21:43 Dose: 10 mg Documented by: Bisacodyl (Bisacodyl 10 Mg Rect Supp) 10 mg [place] DAILY PRN PRN Reason: Constipation Famotidine (Famotidine 20 Mg/2 Ml Inj) 20 mg IV BID [facility] Last Admin: 12/04/20 21:43 Dose: 20 mg Documented by: Haloperidol (Haloperidol 1 Mg Tab) 1 mg PO Q4H PRN PRN Reason: Anxiety Last Admin: 12/04/20 21:43 Dose: 1 mg Documented by: Heparin Sodium (Porcine) (Heparin 5,000 Unit/1 Ml Vial) 5,000 unit SUB-Q Q12HR [facility] Last Admin: 12/04/20 21:43 Dose: 5,000 unit Documented by: Hyoscyamine (Hyoscyamine Subl 0.125 Mg Tab) 0.125 mg SL Q4H PRN PRN Reason: excessive secretions Dextrose/Sodium Chloride (D5ns) 1,000 mls @ 100 mls/hr IV DIRECT [facility] Last Admin: 12/05/20 04:38 Dose: 100 mls/hr Documented by: Metoclopramide HCl (Metoclopramide 10 Mg/2 Ml Inj) 10 mg IV Q6H PRN PRN Reason: Nausea And Vomiting Miscellaneous Medication (Bictegrav/Emtricit/Tenofov Ala) 1 tab PO DAILY [facility] Morphine Sulfate (Morphine 2 Mg/1 Ml Inj) 2 mg IV Q4H PRN PRN Reason: Pain, Moderate (4-6) Ondansetron HCl (Ondansetron 4 Mg/2 Ml Inj) 4 mg IV Q3H PRN PRN Reason: Nausea And Vomiting Sodium Chloride (Sodium Chloride 0.9% 10 Ml Flush Syringe) 10 ml IV BID [facility] Last Admin: 12/05/20 05:03 Dose: 10 ml Documented by: Sodium Chloride (Sodium Chloride 0.9% 10 Ml Flush Syringe) 10 ml IV PRN PRN PRN Reason: LINE FLUSH Exam - Constitutional Vitals: Temp Pulse Resp BP Pulse Ox 97.5 F L 39 L 18 128/64 97 12/05/20 07:41 12/05/20 07:41 12/05/20 07:41 12/05/20 07:41 12/05/20 07:41 Results - Labs CBC & Chem 7: 12/05/20 07:22 12/05/20 07:22 Labs: Abnormal lab results 12/05/20 12/05/20 Range/Units 07:22 07:22 RBC 3.38 L (3.65-5.03) M/mm3 Hgb 11.4 L (11.8-15.2) gm/dl Hct 34.1 L (35.5-45.6) % MCV 101 H (84-94) fl MCH 34 H (28-32) pg [place] % (Auto) 7.8 H (0.0-7.3) % Sodium 136 L (137-145) mmol/L BUN 7 L (9-20) mg/dL Glucose 105 H (75-100) mg/dL
--- NOTE | 2020-12-05 10:39 | Progress Note ---
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 TSH is normal at 1.5 Patient and his daughter declined pacemaker insertion. Will therefore, pursue a conservative cardiac management. (2) HIV (human immunodeficiency virus infection) Current Visit: Yes Status: Chronic Qualifiers: Qualified Code(s): B20 - Human immunodeficiency virus [HIV] disease (3) Decubitus ulcers Current Visit: Yes Status: Chronic (4) Parkinson's disease Current Visit: Yes Status: Chronic Subjective Date of service: 12/05/20 Interval history: Currently, telemetry shows complete heart block with junctional escape rhythm, heart rate in the 40s. Objective Vital Signs Temp Pulse Resp BP Pulse Ox 12/05/20 07:41 97.5 F L 39 L 18 128/64 97 12/05/20 05:00 42 L 12/05/20 03:20 97.9 F 42 L 17 120/52 96 12/04/20 22:17 97.6 F 43 L 14 130/52 98 12/04/20 21:00 43 L 12/04/20 19:19 97.9 F 43 L 16 121/64 99 12/04/20 16:17 98.5 F 44 L 15 133/40 99 12/04/20 13:00 87 - Physical Examination General: No Apparent Distress HEENT: Positive: PERRL Neck: Positive: trachea midline Cardiac: Positive: Other (CHB with junctional escape) Skin: Positive: Other (hip ulcer) Extremities: Absent: edema - Labs and Meds CBC 12/05/20 Range/Units 07:22 WBC 7.2 (4.5-11.0) K/mm3 RBC 3.38 L (3.65-5.03) M/mm3 Hgb 11.4 L (11.8-15.2) gm/dl Hct 34.1 L (35.5-45.6) % Plt Count 276 (140-440) K/mm3 Lymph # (Auto) 1.7 (1.2-5.4) K/mm3 [place] # (Auto) 0.6 (0.0-0.8) K/mm3 Eos # (Auto) 0.3 (0.0-0.4) K/mm3 Baso # (Auto) 0.0 (0.0-0.1) K/mm3 Comprehensive Metabolic Panel 12/05/20 Range/Units 07:22 Sodium 136 L (137-145) mmol/L Potassium 3.7 (3.6-5.0) mmol/L Chloride 105.0 (98-107) mmol/L Carbon Dioxide 24 (22-30) mmol/L BUN 7 L (9-20) mg/dL Creatinine 0.8 (0.8-1.3) mg/dL Glucose 105 H (75-100) mg/dL Calcium 8.6 (8.4-10.2) mg/dL
[2020-12-05] MEDS ORDERED: EMTRICITABINE 200 MG CAP PO SCH (11:15)
[2020-12-05] MEDS ORDERED: TENOFOVIR 300 MG TAB PO SCH (11:15)
[2020-12-05 11:25] VITALS: BP 117/47
--- NOTE | 2020-12-05 11:31 | Progress Note ---
Assessment and Plan Assessment and plan: First-degree AV block/bradycardia Parkinson's disease Anemia Hypokalemia HIV Decubitus ulcers Protein calorie malnutrition 12/04/2020. Await cardiology consultation. Continue telemetry monitoring. 12/05/2020. 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 Cards extensively discussed risks and benefits of pacemakers. After extensive discussion, patient and his daughter do not want to proceed with PPM. Patient was previously on hospice and I explored this possibility with the daughter who was in agreement. Patient will be transferred back to [facility] under hospice care. Urology was also consulted and had suprapubic catheter change with larger tubing History Interval history: No new issues overnight. Hospitalist Physical - Constitutional Vitals: Temp Pulse Resp BP Pulse Ox 97.5 F L 39 L 18 128/64 97 12/05/20 07:41 12/05/20 07:41 12/05/20 07:41 12/05/20 07:41 12/05/20 07:41 General appearance: Present: other (contracted) HEART Score - HEART Score Age: > 65 Risk factors: > 3 risk factors or hx of atherosclerotic disease Troponin: Troponin T 0.019 ng/mL (0.00-0.029) 12/04/20 12:35 Troponin: < normal limit - Critical Actions Critical Actions: 0-3 pts:0.9-1.7%risk of adverse cardiac event.Candidate for discharge Results - Labs CBC & Chem 7: 12/05/20 07:22 12/05/20 07:22 Labs: Laboratory Last Values WBC 7.2 K/mm3 (4.5-11.0) 12/05/20 07:22 RBC 3.38 M/mm3 (3.65-5.03) L 12/05/20 07:22 Hgb 11.4 gm/dl (11.8-15.2) L 12/05/20 07:22 Hct 34.1 % (35.5-45.6) L 12/05/20 07:22 MCV 101 fl (84-94) H 12/05/20 07:22 MCH 34 pg (28-32) H 12/05/20 07:22 MCHC 33 % (32-34) 12/05/20 07:22 RDW 14.0 % (13.2-15.2) 12/05/20 07:22 Plt Count 276 K/mm3 (140-440) 12/05/20 07:22 Lymph % (Auto) 23.6 % (13.4-35.0) 12/05/20 07:22 [place] % (Auto) 7.8 % (0.0-7.3) H 12/05/20 07:22 Eos % (Auto) 3.5 % (0.0-4.3) 12/05/20 07:22 Baso % (Auto) 0.5 % (0.0-1.8) 12/05/20 07:22 Lymph # (Auto) 1.7 K/mm3 (1.2-5.4) 12/05/20 07:22 [place] # (Auto) 0.6 K/mm3 (0.0-0.8) 12/05/20 07:22 Eos # (Auto) 0.3 K/mm3 (0.0-0.4) 12/05/20 07:22 Baso # (Auto) 0.0 K/mm3 (0.0-0.1) 12/05/20 07:22 Seg Neutrophils % 64.6 % (40.0-70.0) 12/05/20 07:22 Seg Neutrophils # 4.6 K/mm3 (1.8-7.7) 12/05/20 07:22 Sodium 136 mmol/L (137-145) L 12/05/20 07:22 Potassium 3.7 mmol/L (3.6-5.0) 12/05/20 07:22 Chloride 105.0 mmol/L (98-107) 12/05/20 07:22 Carbon Dioxide 24 mmol/L (22-30) 12/05/20 07:22 Anion Gap 11 mmol/L 12/05/20 07:22 BUN 7 mg/dL (9-20) L 12/05/20 07:22 Creatinine 0.8 mg/dL (0.8-1.3) 12/05/20 07:22 Estimated GFR > 60 ml/min 12/05/20 07:22 BUN/Creatinine Ratio 9 % 12/05/20 07:22 Glucose 105 mg/dL (75-100) H 12/05/20 07:22 Hemoglobin A1c 5.1 % (4-6) 12/04/20 05:14 Calcium 8.6 mg/dL (8.4-10.2) 12/05/20 07:22 Total Bilirubin 0.40 mg/dL (0.1-1.2) 12/04/20 05:14 AST 16 units/L (5-40) 12/04/20 05:14 ALT 16 units/L (7-56) 12/04/20 05:14 Alkaline Phosphatase 65 units/L (35-129) 12/04/20 05:14 Troponin T 0.019 ng/mL (0.00-0.029) 12/04/20 12:35 Total Protein 7.0 g/dL (6.3-8.2) 12/04/20 05:14 Albumin 3.0 g/dL (3.9-5) L 12/04/20 05:14 Albumin/Globulin Ratio 0.8 % 12/04/20 05:14 TSH 1.510 mlU/mL (0.270-4.200) 12/03/20 16:53 Carr/IV: Voiding Method Indwelling Catheter Active Medications - Current Medications Current Medications: Generic Name Dose Route Start Last Admin Trade Name Freq PRN Reason Stop Dose Admin Acetaminophen 650 mg 12/03/20 23:23 Acetaminophen 325 Mg Tab PO Q4H PRN Pain MILD(1-3)/Fever >100.5/BAILEY Baclofen 10 mg 12/04/20 10:00 12/05/20 10:13 Baclofen 10 Mg Tab PO 10 mg BID [facility] Administration Bisacodyl 10 mg 12/04/20 10:00 Bisacodyl 10 Mg Rect Supp SD DAILY PRN Constipation Emtricitabine 200 mg 12/05/20 11:15 Emtricitabine 200 Mg Cap PO QDAY [facility] Famotidine 20 mg 12/05/20 22:00 Famotidine 20 Mg Tab PO BID [facility] Haloperidol 1 mg 12/04/20 07:20 12/04/20 21:43 Haloperidol 1 Mg Tab PO 1 mg Q4H PRN Administration Anxiety Heparin Sodium (Porcine) 5,000 unit 12/04/20 10:00 12/05/20 10:05 Heparin 5,000 Unit/1 Ml Vial SUB-Q 5,000 unit Q12HR [facility] Administration Hyoscyamine 0.125 mg 12/04/20 07:20 Hyoscyamine Subl 0.125 Mg Tab SL Q4H PRN excessive secretions Dextrose/Sodium Chloride 1,000 mls @ 100 mls/hr 12/03/20 23:45 12/05/20 04:38 D5ns IV 100 mls/hr DIRECT [facility] Administration Metoclopramide HCl 10 mg 12/03/20 23:23 Metoclopramide 10 Mg/2 Ml Inj IV Q6H PRN Nausea And Vomiting Morphine Sulfate 2 mg 12/03/20 23:23 Morphine 2 Mg/1 Ml Inj IV Q4H PRN Pain, Moderate (4-6) Ondansetron HCl 4 mg 12/03/20 23:23 Ondansetron 4 Mg/2 Ml Inj IV Q3H PRN Nausea And Vomiting Sodium Chloride 10 ml 12/03/20 23:45 12/05/20 10:07 Sodium Chloride 0.9% 10 Ml Flush Syringe IV Not Given BID [facility] Sodium Chloride 10 ml 12/03/20 23:23 Sodium Chloride 0.9% 10 Ml Flush Syringe IV PRN PRN LINE FLUSH Tenofovir Disoproxil Fumarate 300 mg 12/05/20 11:15 Tenofovir 300 Mg Tab PO QDAY [facility] Nutrition/Malnutrition Assess - Dietary Evaluation Nutrition/Malnutrition Findings: Nutrition Notes Start: 12/04/20 09:32 Freq: Status: Active Protocol: Document 12/04/20 09:32 CW (Rec: 12/04/20 09:44 CW [id number]) Nutrition Notes Need for Assessment generated from: networking administrator,MST Initial or Follow up Assessment Current Diagnosis Decubitus(Pressure Ulcer), Hypertension,Hyperlipidemia Other Pertinent Diagnosis Parkinson's,anemia, HIV, Malnutrition, contractures Current Diet Cardiac Labs/Tests K 3.5 Pertinent Medications D5NS at 100 ml/hr Height 5 ft 7 in Weight 55.6 kg [place] Body Weight (kg) 67.27 BMI 19.2 Weight Status Underweight Subjective/Other Information RN screen for MST for unsure of weight loss and skin risk. Roque score of 12. Pt recieves feeding assistance d/ t contractures. Burn Absent Trauma Absent GI Symptoms None Skin Integrity/Comment Pressure ulcers Minimum of two criteria No Reduced Registered Nurse First Assistant Strength Measurably Reduced (severe) #1 Nutrition Diagnosis Increased nutrient needs ( specify in comment below) Comments: protein Etiology wound healing As Evidenced by Signs and Symptoms multiple pressure ulcers present Is patient on ventilator? No Is Patient Ambulatory and/or Out of Bed No [facility] 1506.084 Kcal/Kg value to use for calculation 33 Approximate Energy Requirements Using 1835 kcal/Kg Calculation Used for Recommendations Kcal/kg Additional Notes protein needs:70-83 g (1.25 - 1.5 g/kgBW) fluid needs: 1 ml/kcal Nutrition Intervention Change Diet Order: Continue Cardiac Diet Add Supplement/Snack (indicate name/kcal Ensure Enlive BID /protein ) Provides kCal: 700 Provides Protein (gm) 40 Goal #1 Meet at [facility] 80% of EER via PO Goal #2 Wound healing Anticipated Discharge Needs: Cardiac diet with ONS BID Follow-Up By: 12/06/20 Additional Comments F/U for intakes and ONS tolerance
--- NOTE | 2020-12-05 11:36 | Discharge Summary ---
Providers - Providers Date of Admission: 12/04/20 16:16 Date of discharge: 12/05/20 Attending physician: ARRON GALVEZ 12/03/20 18:12 Consult to Cardiology [CONS] Routine Consulting Provider: JAREK MARR Reason For Exam: bradycardia 12/03/20 23:23 Consult to Physician [CONS] Routine Comment: Consulting Provider: JAREK MARR Physician Instructions: Reason For Exam: Bradycardia 12/04/20 05:25 Consult to Wound/ET Nurse [CONS] Routine Reason For Exam: wound eval 12/04/20 07:22 Consult to Wound/ET Nurse [CONS] Routine Reason For Exam: wound eval Primary care physician: EITAN DUFFY Hospitalization Reason for admission: bradycardia Condition: Fair Hospital course: This is a 75-year-old -[place] male with severe parkinsonism and multiple contractures curled up in the bed who presents to the emergency department, sent in by Dr. Marr of [facility], for evaluation of bradyca rdia. The patient has a past medical history of Parkinson's disease, HIV, hypertension, hyperlipidemia, and is dealing with some urological issues. The patient previously had a suprapubic catheter placed but that was consistently getting clogged. He then had a Carr catheter placed. The patient is supposed to have surgery on December 14 to remove an obstructing stone and have a new suprapubic catheter placed. He follows with urology of [facility] in [place] and previously was seeing Dr. Saleem. The patient lives at [facility] and Dr. Eitan Duffy had noticed the patient was having bradycardia. He was then sent to [facility] cardiology for evaluation of this bradycardia and he had his first appointment today. The patient presents with an office note showing that the patient had a heart rate of 49 and had an EKG that showed AV block and that the patient will be sent to the emergency department for further evaluation. The patient is nonverbal at baseline. The patient is nonambulatory at the daughter, who is bedside, says he has multiple pressure ulcers. Patient was admitted with a diagnosis of symptomatic first- degree AV block/bradycardia, Parkinson's disease, anemia, hypokalemia, HIV, protein calorie malnutrition and sacral decubitus ulcer. 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 Patient also placed on the hospice care Hospital course: 12/04/2020. Await cardiology consultation. Continue telemetry monitoring. 12/05/2020. 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 Cardiology advised the patient and daughter that he does not believe that there is any reversible cause of his complete heart block and PPM implant was the only exterminator helper termite treatment for his condition. Cards extensively discussed risks and benefits of pacemakers. After extensive discussion, patient and his daughter do not want to proceed with PPM. Patient was previously on hospice and I explored this possibility with the daughter who was in agreement. Patient will be transferred back to [facility] under hospice care. Urology was also consulted and had suprapubic catheter change with larger tubing Dedicated discharge time 35 minutes Disposition: DC-01 TO HOME OR SELFCARE Final Discharge Diagnosis (Prints w/discharge instructions): See discharge s [facility] Core Measure Documentation - Palliative Care Palliative Care/ Comfort Measures: Not Applicable - Core Measures Any of the following diagnoses?: none Exam - Constitutional Vitals: Temp Pulse Resp BP Pulse Ox 97.8 F 44 L 30 H 117/47 97 12/05/20 11:16 12/05/20 11:16 12/05/20 11:16 12/05/20 11:16 12/05/20 11:16 General appearance: Present: no acute distress, well-nourished - EENT Eyes: Present: PERRL ENT: hearing intact, clear oral mucosa - Neck Neck: Present: supple, normal ROM - Respiratory Respiratory effort: normal Respiratory: bilateral: CTA - Cardiovascular Heart Sounds: Present: S1 & S2. Absent: rub, click - Extremities Extremities: pulses symmetrical, No edema Peripheral Pulses: within normal limits - Abdominal General gastrointestinal: Present: soft, non-tender, non-distended, normal bowel sounds Male genitourinary: Present: normal - Integumentary Integumentary: Present: clear, warm, dry - Musculoskeletal Musculoskeletal: gait normal, strength equal bilaterally - Psychiatric Psychiatric: appropriate mood/affect, intact judgment & insight - Neurologic Neurologic: CNII-XII intact, moves all extremities Plan Activity: advance as tolerated Weight Bearing Status: Weight Bear as Tolerated Diet: regular Follow up with: EITAN DUFFY MD [Primary Care Provider] - 7 Days
[2020-12-05] MEDS ORDERED: DOLUTEGRAVIR 50 MG TAB PO SCH (12:00)
[2020-12-05] MEDS ORDERED: FAMOTIDINE 20 MG TAB PO SCH (22:00)
== END 2020-12-05 16:20 | disposition hospice, inpatient (51) | DRG 309 ==
LOC: ED 16:22 → 4A 18:12 → OBSVTOIN 12-04 16:16
PROVIDERS: ADMIT Internal Medicine; ATTEND Hospitalist
DX: I44.0 Atrioventricular block, first degree (principal); B20 Human immunodeficiency virus [HIV] disease; E44.0 Moderate protein-calorie malnutrition; Z68.1 Body mass index [BMI] 19.9 or less, adult; E87.6 Hypokalemia; E78.5 Hyperlipidemia, unspecified; L89.92 Pressure ulcer of unspecified site, stage 2; I10 Essential (primary) hypertension; D64.9 Anemia, unspecified; G20 Parkinson's disease; Z88.2 Allergy status to sulfonamides; Z79.899 Other long term (current) drug therapy; Z79.891 Long term (current) use of opiate analgesic; Z79.01 Long term (current) use of anticoagulants; Z82.49 Family history of ischemic heart disease and other diseases of the circulatory system
CPT/HCPCS: 36415; 71045; 80048; 80053; 83036; 84443; 84484; 85025; 93005; 93306; 96374; G0378; J1644; J7042